=== PATIENT | female | born 1980 | race Caucasian/White ===

== ENCOUNTER 2019-03-29 23:49 | Emergency (ER) | payer OTHER ==
[~2019-03-29] VITALS: Ht 162.6 cm; Wt 74.8 kg
[2019-03-30] VITALS: BP_SYST 146
--- NOTE | 2019-03-30 | NUR ---
Patient to ER bed hallway to gown for evaluation. Side rails up.
[2019-03-30] MEDS ORDERED: CEL20 PO (00:08)
--- NOTE | 2019-03-30 00:21 | NUR ---
ER at bedside examining patient.
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
[2019-03-30] MEDS ORDERED: DIPH-TET-PERTUS Vaccine 0.5 ML VIAL (ADACEL) I.M. ONE (00:30)
[2019-03-30] MEDS ORDERED: ACETAMINOPHEN 325 MG TABLET PO ONE (00:30)
[2019-03-30 01:20] VITALS: BP_SYST 146
--- NOTE | 2019-03-30 01:20 | NUR ---
Jabier moses in ED - 03/30/19 at 0124 by [email or web address] JOHN Casanova at bedside examining patient.
--- NOTE | 2019-03-30 01:20 | NUR ---
Patient given written and verbal discharge instructions and verbalizes understanding. ER MD Tripathi discussed with patient the results and treatment provided. Patient in stable condition. ID arm band removed. Patient educated on pain management and to follow up with PMD. Pain Scale 0/10. Opportunity for questions provided and answered. Medication side effect fact sheet provided.
== END 2019-03-30 01:20 | disposition home or self-care (01) ==
LOC: SED 23:49
DX: S20.211A Contusion of right front wall of thorax, initial encounter (principal); S20.411A Abrasion of right back wall of thorax, initial encounter; Z79.899 Other long term (current) drug therapy; Y04.0XXA Assault by unarmed brawl or fight, initial encounter; Y93.89 Activity, other specified; Y92.89 Other specified places as the place of occurrence of the external cause; Y99.8 Other external cause status
CPT/HCPCS: 71045; 90715; 99283